=== PATIENT | male | born 1970 | race Caucasian/White ===

== ENCOUNTER → 2019-06-24 | Outpatient (CLI) | payer OTHER ==
[~2019-06-24] MED LIST: FIBER CHOICE1 CTB PO; METAMUCIL1 PDR PO
== END ==
LOC: COL.RAD 08:26
DX: N32.89 Other specified disorders of bladder (principal); N40.0 Benign prostatic hyperplasia without lower urinary tract symptoms
CPT/HCPCS: Q9967

== ENCOUNTER → 2022-08-02 | Outpatient (CLI) | payer OTHER | LOC: COL.RAD 14:38 | DX: Z12.2 Encounter for screening for malignant neoplasm of respiratory organs (principal); Z87.891 Personal history of nicotine dependence ==

== ENCOUNTER → 2023-08-03 | Outpatient (CLI) | payer OTHER | LOC: COL.RAD 06:53 | DX: N43.3 Hydrocele, unspecified (principal) ==

== ENCOUNTER → 2023-08-15 | Outpatient (CLI) | payer OTHER | LOC: COL.RAD 13:07 | DX: Z12.2 Encounter for screening for malignant neoplasm of respiratory organs (principal); Z87.891 Personal history of nicotine dependence ==